=== PATIENT | male | born 1950 | race Caucasian/White ===

== ENCOUNTER → 2019-12-24 | Outpatient (CLI) | payer BC ==
[2019-12-24 13:12] LABS: Anisocytosis Slight; HCT 36.1 % (39.0-53.0); HGB 12.6 gm/dL (13.0-17.5); MCH 34.5 pg (25.0-35.0); MCV 98.7 fL (80.0-100.0); Macrocytosis Slight; Poikilocytosis Slight; RBC 3.65 m/uL (4.30-5.90); RDW 16.4 % (11.5-15.5)
[2019-12-24 13:21] LABS: Calcium 10.6 mg/dL (8.4-10.2)
[2019-12-24 13:29] LABS: Albumin 5.1 g/dL (3.5-5.0); Potassium 4.1 mmol/L (3.5-5.1); Total Protein 8.1 g/dL (6.3-8.2)
[2019-12-24 13:39] LABS: Band Neutrophils % 3 %; Lymphocytes # (M) 2.11 k/uL (1.0-4.8); Metamyelocytes % 2 %; Monocytes # (M) 0.34 k/uL (0-1.0); Myelocytes # (M) 0.15 k/uL (0); Myelocytes % 3 %; Neutrophils % (M) 41 %; Nucleated Red Blood Cells 2 /100 WBC (0-0); Total Cells Counted 200; WBC 4.9 k/uL (3.8-10.6)
[2019-12-24 13:40] LABS: Polychromasia Present
[2019-12-24 13:41] LABS: Platelet Count 22 k/uL (150-450)
--- NOTE | 2019-12-24 20:40 | CT ---
EXAMINATION TYPE: CT chest w con DATE OF EXAM: 12/24/2019 COMPARISON: None HISTORY: 69-year-old male Chest and upper back pain, R07.9, R06.02 TECHNIQUE: Contiguous axial scanning of the chest after the administration of 100 mL of Isovue 300. Coronal/sagittal reconstructions performed. CT DLP: 274.1mGycm. Automatic exposure control utilized for a dose reduction. FINDINGS: The heart is normal size without pericardial effusion. Ectatic ascending aorta 3.7 cm with conventional vessel branching anatomy. Ectatic mid descending tho racic aorta at 2.8 cm. No thoracic lymphadenopathy by CT size criteria. 4 mm anterior and midlung pulmonary nodule, axial image 33. Strandy atelectasis at the lung bases. No consolidation or pleural effusion. Small hiatal hernia. Spleen upper limits of normal in size at 13.7 cm. Visualized upper abdomen other guevara shows no gross abnormality. Bones: Heterogeneous marrow density with diffuse scattered areas of lucency. There is mild paraverteb ral soft tissue thickening at the level of an anterior wedge deformity of T6 and 60% anterior height loss. No retropulsion into the ventral spinal canal. IMPRESSION: 1. Diffuse heterogeneous osseous density with diffuse scattered areas of lucency and some areas of en dosteal scalloping. Correlate for etiologies such as multiple myeloma, leukemia/lymphoma, and osseous metastatic disease. 2. Anterior wedge deformity, probably subacute at the T6 level given mild paravertebral soft tissue s welling. Likely pathologic compression injury. 3. Indeterminate 4 mm right mid lung pulmonary nodule for which a six-month follow-up can be performe d. 4. Small hiatal hernia.
== END | disposition home or self-care (01) ==
LOC: RADCTMAIN 12:13
PROVIDERS: ATTEND Family Medicine
DX: K44.9 Diaphragmatic hernia without obstruction or gangrene (principal); R93.7 Abnormal findings on diagnostic imaging of other parts of musculoskeletal system; R06.02 Shortness of breath; D72.819 Decreased white blood cell count, unspecified; R79.89 Other specified abnormal findings of blood chemistry
CPT/HCPCS: 80053; 85025; 71260; 36415; Q9967